=== PATIENT | male | born 1950 ===

== ENCOUNTER 2020-10-29 20:17 | Inpatient (IN) | payer OTHER, MEDICARE ==
--- OUTSIDE RECORDS SUMMARY | 2020-10-29 20:21 | XMS REPORT | Continuity of Care Document ---
:1950 Author Organization [facility] t Address [address] [place] [address] Care Team Providers Name Role Phone 2, Lab Attending Clinician Unavailable Doctor Unassigned, Name Attending Clinician Unavailable Problems This patient has no known problems. Allergies, Adverse Reactions, Alerts This patient has no known allergies or adverse reactions. Medications This patient has no known medications. Procedures This patient has no known procedures. 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 Lab [facility] [id number] 15:36:15 15:51:15 Visit Ivon [id number] [place] [id number] Yvon [id number] [address] 2019-01-14 2019-01-14 Orders Doctor ANA [id number] 00:00:00 00:00:00 Only Unassigned, LIA [id number] [place] [facility] [phone] [id number] Results This patient has no known results.
[2020-10-29 20:44] LABS: Absolute Lymphocytes (CBC) 1.5 K/uL (0.7-4.9); Hematocrit 45.4 % (39.6-49.0); Lymphocytes % 17.3 % (15.3-44.8); MPV 8.7 fL (7.6-11.3); RBC Red Blood Cell Count 5.07 M/uL (4.33-5.43)
[2020-10-29 20:53] LABS: Protime INR 1.24
[2020-10-29] MEDS ORDERED: MORPHINE 2 MG/ML SYR ONE (21:07)
[2020-10-29] MEDS ORDERED: ONDANSETRON 4 MG/2 ML VIAL ONE (21:07)
[2020-10-29] MEDS ORDERED: ASPIRIN EC 81 MG TAB PO ONE (21:07)
[2020-10-29 21:11] LABS: ALT/SGPT 48 U/L (12-78); AST/SGOT 28 U/L (15-37); Albumin 3.8 g/dL (3.4-5.0); Alkaline Phosphatase 75 U/L (45-117); BUN Blood Urea Nitrogen 16 mg/dL (7-18); Bicarbonate 25 mmol/L (21-32); Bilirubin Direct 0.1 mg/dL (0-0.2); Bilirubin Total 0.5 mg/dL (0.2-1.0); Glucose Level 110 mg/dL (74-106); Magnesium 2.5 mg/dL (1.8-2.4); NT PRO-BNP 225 pg/mL (<125); Protein, Total 6.9 g/dL (6.4-8.2); Sodium Level 142 mmol/L (136-145); Troponin (Emerg Dept Use Only) < 0.02 ng/mL (0.0-0.045)
--- NOTE | 2020-10-29 21:24 | RAD REPORT ---
EXAM DESCRIPTION: RAD - Chest Single View - 10/29/2020 9:08 pm CLINICAL HISTORY: CHEST PAIN COMPARISON: Two view chest October 2011 TECHNIQUE: AP portable chest image was obtained 10/29/2020 9:08 pm . FINDINGS: Lung volumes are low. No peripheral mass or consolidation. Cardiac silhouette is accentuat ed by pericardial fat pads. Failure and volume overload are not suspected. Heart and vasculature are normal. No measurable pleural effusion and no pneumothorax. No acute bony abnormality seen. No acute aortic findings suspected. IMPRESSION: Limited portable imaging showing no acute cardiopulmonary process.
--- NOTE | 2020-10-29 23:02 | EDPHYS ---
Physician Documentation [facility] Name: Juan M Oneal Age: 70 yrs Sex: Male : 1950 Arrival Date: 10/29/2020 Time: 20:25 Bed 5 Private MD: BENNY Physician Ahsan Cash HPI: 10/29 21:01 This 70 yrs old Unknown Male presents to ER via EMS with complaints of Chest pain. mh7 21:01 The patient or guardian reports chest pain that is located primarily in the substernal mh7 area. Onset: today, at 17:30. The pain radiates to the left arm. Associated signs and symptoms: Pertinent positives: nausea, shortness of breath, vomiting, Pertinent negatives: abdominal pain, cough, diaphoresis, dizziness, headache, lower extremity pain, lower extremity swelling, lightheadedness, near syncope, palpitations, recent travel, syncope. The chest pain is described as a pressure. Duration: The patient or guardian reports multiple episodes, that are intermittent, that wax and wane. Modifying factors: The symptoms are alleviated by nothing. the symptoms are aggravated by nothing. Severity of pain: At its worst the pain was moderate today, in the emergency department the pain has improved moderately. Historical: - Allergies: 20:33 No Known Allergies; kg - PMHx: 20:33 TIA; Atrial Fib; COPD; Inactive Histoplasmosis; kg 20:39 Hypertension; kg - Immunization history:: Adult Immunizations up to date, Client reports receiving the 2nd dose of the Covid vaccine, Client reports receiving the 1st dose of the Covid vaccine. - Social history:: Smoking status: Patient reports the use of cigarette tobacco products, Previous smoker. . ROS: 21:01 Constitutional: Negative for fever, chills, and weight loss, Eyes: Negative for injury, mh7 pain, redness, and discharge, ENT: Negative for injury, pain, and discharge, Neck: Negative for injury, pain, and swelling, Back: Negative for injury and pain, : Negative for injury, bleeding, discharge, and swelling, Skin: Negative for injury, rash, and discoloration, Neuro: Negative for headache, weakness, numbness, tingling, and seizure, Psych: Negative for depression, anxiety, suicide ideation, homicidal ideation, and hallucinations, Allergy/Immunology: Negative for hives, rash, and allergies, Endocrine: Negative for neck swelling, polydipsia, polyuria, polyphagia, and marked weight changes, Hematologic/Lymphatic: Negative for swollen nodes, abnormal bleeding, and unusual bruising. Exam: 21:01 Constitutional: This is a well developed, well nourished patient who is awake, alert, mh7 and in no acute distress. Head/Face: Normocephalic, atraumatic. Eyes: Pupils equal round and reactive to light, extra-ocular motions intact. Lids and lashes normal. Conjunctiva and sclera are non-icteric and not injected. Cornea within normal limits. Periorbital areas with no swelling, redness, or edema. Neck: Trachea midline, no thyromegaly or masses palpated, and no cervical lymphadenopathy. Supple, full range of motion without nuchal rigidity, or vertebral point tenderness. No Meningismus. Chest/axilla: Normal chest wall appearance and motion. Nontender with no deformity. No lesions are appreciated. 21:01 Respiratory: Lungs have equal breath sounds bilaterally, clear to auscultation and percussion. No rales, rhonchi or wheezes noted. No increased work of breathing, no retractions or nasal flaring. Abdomen/GI: Soft, non-tender, with normal bowel sounds. No distension or tympany. No guarding or rebound. No evidence of tenderness throughout. Back: No spinal tenderness. No costovertebral tenderness. Full range of motion. Skin: Warm, dry with normal turgor. Normal color with no rashes, no lesions, and no evidence of cellulitis. MS/ Extremity: Pulses equal, no cyanosis. Neurovascular intact. Full, normal range of motion. Neuro: Awake and alert, GCS 15, oriented to person, place, time, and situation. Cranial nerves II-XII grossly intact. Motor strength 5/5 in all extremities. Sensory grossly intact. Cerebellar exam normal. Normal gait. Psych: Awake, alert, with orientation to person, place and time. Behavior, mood, and affect are within normal limits. 21:01 Cardiovascular: Rate: normal, Rhythm: irregularly irregular, Pulses: no pulse deficits are appreciated, Heart sounds: normal, normal S1and S2, Edema: is not appreciated, JVD: is not appreciated. Vital Signs: 20:25 BP 134 / 82; Pulse 87; Resp 19; Temp 98.7(TE); Pulse Ox 96% on 2 lpm NC; Weight 112.94 jb4 kg (R); Height 5 ft. 10 in. (177.80 cm) (R); Pain 4/10; 21:30 BP 123 / 79; Pulse 92; Resp 20; Pulse Ox 97% ; kg 10/30 00:23 BP 131 / 75; Pulse 90; Resp 16; Pulse Ox 99% ; rr5 00:30 BP 136 / 79; Pulse 95; Resp 19; Pulse Ox 99% ; Pain 5/10; rr5 10/29 20:25 Body Mass Index 35.73 (112.94 kg, 177.80 cm) jb4 MDM: 10/29 22:58 Differential diagnosis: abnormal EKG, acute myocardial infarction, acute pericarditis, mh7 anxiety, coronary artery disease chest wall pain, congestive heart failure costochondritis, myocarditis, pericarditis, pneumonia, pneumothorax. HEART Score: History: Highly Suspicious (2), ECG: Non specific repolarization disturbance / LBTB / PM (1), Age: > or = 65 years (2), Risk Factors: 1 or 2 risk factors (1), [Hypercholesterolemia] [Obesity] Troponin: < or = 1 x Normal Limit (0), Total Score = 6. The patient was given aspirin in the Emergency Department. Data reviewed: vital signs, nurses notes, lab test result(s), cardiac enzymes, CBC, electrolytes, EKG, radiologic studies, plain films. Data interpreted: Pulse oximetry: on room air is 97 %. Interpretation: normal. Counseling: I had a detailed discussion with the patient and/or guardian regarding: the historical points, exam findings, and any diagnostic results supporting the discharge/admit diagnosis, lab results, radiology results, the need for further work-up and treatment in the hospital. Response to treatment: the patient's symptoms have markedly improved after treatment. 23:00 Patient medically screened. [facility] 10/29 20:26 Order name: Basic Metabolic Panel; Complete Time: 21:12 [facility] 10/29 20:26 Order name: CBC with Diff; Complete Time: 21:12 [facility] 10/29 20:26 Order name: LFT's; Complete Time: 21:12 [facility] 10/29 20:26 Order name: Magnesium; Complete Time: 21:12 [facility] 10/29 20:26 Order name: NT PRO-BNP; Complete Time: 21:12 10/29 20:26 Order name: PT-INR; Complete Time: 21:12 10/29 20:26 Order name: Troponin (emerg Dept Use Only); Complete Time: 21:12 10/29 20:26 Order name: XRAY Chest (1 view); Complete Time: 22:06 10/29 20:26 Order name: EKG; Complete Time: 20:27 10/29 22:36 Order name: COVID-19 : Document "Date of Symptom Onset" if Symptomatic. kg 10/30 00:04 Order name: SARS-COV-2 RT PCR EDMS 10/29 20:26 Order name: Cardiac monitoring; Complete Time: 20:37 10/29 20:26 Order name: EKG - Nurse/Tech; Complete Time: 20:37 10/29 20:26 Order name: IV Saline Lock; Complete Time: 22:10 10/29 20:26 Order name: Labs collected and sent; Complete Time: 22:10 10/29 20:26 Order name: O2 Per Protocol; Complete Time: 20:37 10/29 20:26 Order name: O2 Sat Monitoring; Complete Time: 20:37 10/29 22:51 Order name: CONS Physician Consult EDHI Administered Medications: 20:53 Drug: Zofran (Ondansetron) 4 mg Route: IVP; Site: left wrist; kg 22:14 Follow up: Response: No adverse reaction; Marked relief of symptoms kg 20:53 Drug: Aspirin Chewable Tablet 324 mg Route: PO; kg 22:13 Follow up: Response: No adverse reaction kg 20:54 Drug: morphine 2 mg Route: IVP; Site: right forearm; kg 22:14 Follow up: Response: No adverse reaction; Marked relief of symptoms; Pain is decreased kg Disposition: 10/29/20 23:00 Hospitalization ordered by Patito Macdonald for Observation. Preliminary diagnosis is Chest pain, unspecified. - Bed requested for Telemetry/MedSurg (observation). - Status is Observation. rr5 - Condition is Stable. - Problem is new. - Symptoms have improved. Signatures: Dispatcher [employer] EDHI Michelle Hall RN RN Berto Hendrickson RN RN rr5 Ahsan Cash MD MD 7 Sherice Carrasco Corrections: (The following items were deleted from the chart) 10/30 00:14 10/29 23:00 Hospitalization Ordered by Patito Macdonald MD for Observation. Preliminary diagnosis is Chest pain, unspecified. Bed requested for Telemetry/MedSurg (observation). Status is Observation. Condition is Stable. Problem is new. Symptoms have improved. 7 10/30 00:51 00:14 10/29/2020 23:00 Hospitalization Ordered by Patito Macdonald MD for Observation. rr5 Preliminary diagnosis is Chest pain, unspecified. Bed requested for Telemetry/MedSurg (observation). Status is Observation. Condition is Stable. Problem is new. Symptoms have improved. mw
--- NOTE | 2020-10-29 23:02 | ER ---
Nurse's Notes [facility] Name: Juan M Oneal Age: 70 yrs Sex: Male : 1950 Arrival Date: 10/29/2020 Time: 20:25 Bed 5 Private MD: Diagnosis: Chest pain, unspecified Presentation: 10/29 20:27 Chief complaint: Patient states: Chest pain starting about 17:30 after I ate dinner. kg Coronavirus screen: Client denies travel out of the [place] in the last 14 days. Ebola Screen: Patient negative for fever greater than or equal to 101.5 degrees Fahrenheit, and additional compatible Ebola Virus Disease symptoms Patient denies exposure to infectious person. Patient denies travel to an Ebola-affected area in the 21 days before illness onset. Initial Sepsis Screen: Does the patient meet any 2 criteria? No. Patient's initial sepsis screen is negative. Does the patient have a suspected source of infection? No. Patient's initial sepsis screen is negative. Risk Assessment: Do you want to hurt yourself or someone else? Patient reports no desire to harm self or others. Onset of symptoms was October 29, 2020 at 17:30. 20:27 Method Of Arrival: [facility] kg 20:27 Acuity: [place] 3 kg Historical: - Allergies: 20:33 No Known Allergies; kg - PMHx: 20:33 TIA; Atrial Fib; COPD; Inactive Histoplasmosis; kg 20:39 Hypertension; kg - Immunization history:: Adult Immunizations up to date, Client reports receiving the 2nd dose of the Covid vaccine, Client reports receiving the 1st dose of the Covid vaccine. - Social history:: Smoking status: Patient reports the use of cigarette tobacco products, Previous smoker. . Screenin:33 Abuse screen: Denies threats or abuse. Nutritional screening: No deficits noted. jb4 Tuberculosis screening: No symptoms or risk factors identified. Fall Risk IV access (20 points). Total Goodwin Fall Scale indicates No Risk (0-24 pts). Assessment: 20:33 General: Appears in no apparent distress. uncomfortable, Behavior is cooperative, jb4 anxious. Pain: Complains of pain in chest Pain radiates to left arm Pain currently is 4 out of 10 on a pain scale. Quality of pain is described as pressure. Neuro: Level of Consciousness is awake, alert, obeys commands, Oriented to person, place, time, situation. Cardiovascular: Patient's skin is warm and dry. Respiratory: Reports shortness of breath at rest Airway is patent Respiratory effort is even, labored, Respiratory pattern is symmetrical, tachypnea Breath sounds are clear bilaterally. Breath sounds are diminished in right middle lobe, left lower lobe, right lower lobe and right posterior lower lobe. GI: No signs and/or symptoms were reported involving the gastrointestinal system. : No signs and/or symptoms were reported regarding the genitourinary system. EENT: No signs and/or symptoms were reported regarding the EENT system. Derm: Skin is intact, Skin is pink, warm \T\ dry. Musculoskeletal: Circulation, motion, and sensation intact. Range of motion: intact in all extremities. 10/30 00:05 Reassessment: Patient appears in no apparent distress at this time. Patient is alert, rr5 oriented x 3, equal unlabored respirations, skin warm/dry/pink. received awake alert not in distress GCS 15/15 admitted for chest pain unspecified will be transfer to room 217.. 00:35 Reassessment: Patient appears in no apparent distress at this time. Patient is alert, rr5 oriented x 3, equal unlabored respirations, skin warm/dry/pink. complaints of chest pain pain score 5/10. PRN medication given signed in [facility]. Vital Signs: 10/29 20:25 BP 134 / 82; Pulse 87; Resp 19; Temp 98.7(TE); Pulse Ox 96% on 2 lpm NC; Weight 112.94 jb4 kg (R); Height 5 ft. 10 in. (177.80 cm) (R); Pain 4/10; 21:30 BP 123 / 79; Pulse 92; Resp 20; Pulse Ox 97% ; kg 10/30 00:23 BP 131 / 75; Pulse 90; Resp 16; Pulse Ox 99% ; rr5 00:30 BP 136 / 79; Pulse 95; Resp 19; Pulse Ox 99% ; Pain 5/10; rr5 10/29 20:25 Body Mass Index 35.73 (112.94 kg, 177.80 cm) jb4 ED Course: 10/29 20:25 Patient arrived in ED. bp1 20:25 Philippe Jones, MARA is Primary Nurse. jb4 20:26 Ahsan Cash MD is Attending Physician. [facility] 20:26 Primary Nurse role handed off by Philippe Jones, MARA kg 20:26 Sherice Carrasco is Primary Nurse. kg 20:28 Triage completed. kg 20:33 Patient has correct armband on for positive identification. Placed in gown. Bed in low jb4 position. Call light in reach. Side rails up X 1. director process on. Pulse ox on. NIBP on. 20:33 Maintain EMS IV. Dressing intact. Good blood return noted. Site clean \T\ dry. Gauge \T\ jc 4 site: 20g Right Hand. 21:02 XRAY Chest (1 view) In Process Unspecified. EDMS 23:00 Patito Macdonald MD is Hospitalizing Provider. [facility] 10/30 00:10 Arm band placed on left wrist. rr5 00:50 No provider procedures requiring assistance completed. Patient admitted, IV remains in rr5 place. intact, No redness/swelling at site. Administered Medications: 10/29 20:53 Drug: Zofran (Ondansetron) 4 mg Route: IVP; Site: left wrist; kg 22:14 Follow up: Response: No adverse reaction; Marked relief of symptoms kg 20:53 Drug: Aspirin Chewable Tablet 324 mg Route: PO; kg 22:13 Follow up: Response: No adverse reaction kg 20:54 Drug: morphine 2 mg Route: IVP; Site: right forearm; kg 22:14 Follow up: Response: No adverse reaction; Marked relief of symptoms; Pain is decreased kg Outcome: 23:00 Decision to Hospitalize by Provider. [facility] 10/30 00:50 Admitted to Med/surg accompanied by tech, via stretcher, room 217, with chart, Report rr5 called to jeff Condition: stable Instructed on the need for admit. 00:51 Patient left the ED. rr5 Signatures: Dispatcher [employer] EDMS Philippe Jones, RN MARA jb4 Berto Hendrickson RN RN rr5 Nikki Coughlin Maurice, MD MD 7 Sherice Carrasco kg Corrections: (The following items were deleted from the chart) 10/29 20:37 20:25 BP 134 / 82; Pulse 87bpm; Resp 19bpm; Pulse Ox 96% RA; Temp 98.7F Temporal; jb4 112.94 kg Reported; Height 5 ft. 10 in. Reported; BMI: 35.7; Pain 09/18; jb4
--- NOTE | 2020-10-29 23:17 | P.HP ---
Certification for Inpatient Patient admitted to: Observation With expected LOS: <2 Midnights Patient will require the following post-hospital care: None Practitioner: I am a practitioner with admitting privileges, knowledge of patient current condition, hospital course, and medical plan of care. Services: Services provided to patient in accordance with Admission requirements found in Title 42 Section 412.3 of the Code of Federal Regulations <Manny Hoang - Last Filed: 10/29/20 23:18> Patient History Date of Service: 10/29/20 Reason for admission: chest pain History of Present Illness: Mr. Oneal is a 70 yo M with afib, COPD, HTN, BRAD on CPAP here today for 9/10 sternal chest pain radiating to the left arm beginning at 5pm. He describes the pain as sharp or tightness. He says the pain is constant and began when he went to go lay down. He has never had pain like this before. Reports vomiting and lightheadness. Denies blurry vision or headache. Symptoms improved with morphine. Last Sunday he had a pharmacological stress test wnl, ECHO wnl. He is scheduled to have an ablation for afib in November. 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 He has had a stent placed several years ago. Initial trops negative. In rate controlled afib. - Past Medical/Surgical History Diabetic: No -: afib -: COPD -: HTN -: BRAD w/ CPAP -: hernia repair -: stent placement Psychosocial/ Personal History: - Family History Brother -: Hypertension, Cancer - Social History Smoking Status: Former smoker Alcohol use: No CD- Drugs: No Caffeine use: Yes Place of Residence: Home <Manny Hoang - Last Filed: 10/29/20 23:18> Date of Service: 10/29/20 <Patito Macdonald - Last Filed: 11/01/20 02:26> Review of Systems General: Malaise, As per HPI Eyes: Unremarkable ENT: Unremarkable Respiratory: Unremarkable Cardiovascular: Chest Pain, Light Headedness, As per HPI Gastrointestinal: Nausea, Vomiting, As per HPI Genitourinary: Unremarkable Musculoskeletal: Arm Pain, As per HPI Integumentary: Unremarkable Neurological: Unremarkable Lymphatics: Unremarkable <Manny Hoang - Last Filed: 10/29/20 23:18> Physical Examination - Physical Exam General: Alert, In no apparent distress, Oriented x3, Cooperative HEENT: Atraumatic, Normocephalic, PERRLA, Mucous membr. moist/pink, EOMI, Sclerae nonicteric Neck: Supple, 2+ carotid pulse no bruit, JVD not distended, No Thyromegaly, No LAD Respiratory: Normal air movement Cardiovascular: No edema, Normal pulses, No gallops, No rubs, Irregular heart rate/rhythm Capillary refill: <2 Seconds Gastrointestinal: Normal bowel sounds, Soft and benign, Non-distended, No ascites, No tenderness, No masses, No rebound, No guarding Musculoskeletal: No clubbing, No swelling, No contractures, No erythema, No tenderness, No warmth Integumentary: No rashes, No breakdown, No significant lesion, No tenderness/swelling, No erythema, No warmth, No cyanosis Neurological: Normal speech, Normal strength at 5/5 x4 extr, Normal tone, Sensation intact, Cranial nerves 3-12 intact, Normal affect Lymphatics: No axilla or inguinal lymphadenopathy - Studies Laboratory Data (last 24 hrs) 10/29/20 20:36: PT 14.3 H, INR 1.24 10/29/20 20:36: WBC 8.80, Hgb 15.4, Hct 45.4, Plt Count 199 10/29/20 20:36: Sodium 142, Potassium 4.0, BUN 16, Creatinine 1.16, Glucose 110 H, Magnesium 2.5 H, Total Bilirubin 0.5, AST 28, ALT 48, Alkaline Phosphatase 75 <Manny Hoang - Last Filed: 10/29/20 23:18> Assessment and Plan - Problems (Diagnosis) (1) Afib Status: Chronic Qualifiers: Atrial fibrillation type: unspecified Qualified Code(s): I48.91 - Unspecified atrial fibrillation (2) COPD (chronic obstructive pulmonary disease) Status: Chronic Qualifiers: COPD type: unspecified COPD Qualified Code(s): J44.9 - Chronic obstructive pulmonary disease, unspecified (3) HTN (hypertension) Status: Chronic Qualifiers: Hypertension type: essential hypertension Qualified Code(s): I10 - Essential (primary) hypertension (4) BRAD on CPAP Status: Chronic (5) Chest pain Status: Acute Qualifiers: Chest pain type: unspecified Qualified Code(s): R07.9 - Chest pain, unspecified - Plan cardiology consulted, trend troponins and EKG morphine and NTG PRN, O2 as needed lipid panel and TSH/T4 pending continue Eliquis, digoxin and diltiazem BP currently stable CPAP for bedtime, reconcile and continue home medications for COPD Discharge Plan: Home Plan to discharge in: 24 Hours - Advance Directives Does patient have a Living Will: No Does patient have a Durable POA for Healthcare: No - Code Status/Comfort Care Code Status Assessed: Yes (full code ) Critical Care: No Time Spent Managing Pts Care (In Minutes): 70 <Manny Hoang - Last Filed: 10/29/20 23:18> Date of Service: 10/29/20 Chart reviewed. Events of the last 24 hr noted. Agree with plan of care as mentioned above <Patito Macdonald - Last Filed: 11/01/20 02:26>
[2020-10-30] MEDS ORDERED: ONDANSETRON 4 MG/2 ML VIAL IV PRN (00:39)
[2020-10-30] MEDS ORDERED: ACETAMINOPHEN 500 MG TAB PO PRN (00:39)
[2020-10-30] MEDS ORDERED: MORPHINE 2 MG/ML SYR IV PRN (00:39)
[2020-10-30] MEDS ORDERED: NITROGLYCERIN 0.4 MG/TAB SL PRN (00:39)
[2020-10-30] MEDS ORDERED: MORPHINE 2 MG/ML SYR ONE (01:00)
[2020-10-30] MEDS: APIXABAN 5 MG TABLET PO SCH ×3 (01:41→22:01)
[2020-10-30 01:48] VITALS: BMI 34.1
[2020-10-30 06:28] LABS: Absolute Lymphocytes (CBC) 2.1 K/uL (0.7-4.9); Basophils % 0.5 % (0-1.3); Hematocrit 46.6 % (39.6-49.0); Lymphocytes % 23.7 % (15.3-44.8); MPV 9.3 fL (7.6-11.3); RBC Red Blood Cell Count 5.14 M/uL (4.33-5.43)
[2020-10-30 06:50] LABS: ALT/SGPT 48 U/L (12-78); AST/SGOT 29 U/L (15-37); Albumin 3.7 g/dL (3.4-5.0); Alkaline Phosphatase 67 U/L (45-117); BUN Blood Urea Nitrogen 12 mg/dL (7-18); Bicarbonate 25 mmol/L (21-32); Bilirubin Total 0.8 mg/dL (0.2-1.0); Glucose Level 85 mg/dL (74-106); HDL Cholesterol 44 mg/dL (40-60); LDL Cholesterol, Calculated 137 (<130); Magnesium 2.5 mg/dL (1.8-2.4); Phosphorus 4.4 mg/dL (2.5-4.9); Potassium 4.3 mmol/L (3.5-5.1); Protein, Total 6.9 g/dL (6.4-8.2); Sodium Level 142 mmol/L (136-145); Troponin I < 0.02 ng/mL (0.0-0.045)
[2020-10-30] MEDS ORDERED: predniSONE 5 MG TAB PO SCH (09:00)
[2020-10-30] MEDS ORDERED: DIGOXIN 0.125 MG TABLET PO SCH (09:00)
[2020-10-30] MEDS ORDERED: MONTELUKAST 10 MG TAB PO SCH (09:00)
[2020-10-30 12:49] VITALS: O2SAT 96
[2020-10-30] MEDS ORDERED: ATORVASTATIN 40 MG TAB PO SCH (21:00)
[2020-10-30 22:13] VITALS: BP 129/78; TEMP 97.7
--- NOTE | 2020-10-30 22:14 | CON ---
Date of Consultation: 10/30/2020 Reason For Consultation: Chest pain. History Of Present Illness: A 70-year-old male with history of coronary artery disease, status post cardiac stents in the past; history of chronic atrial fibrillation. He is scheduled to have atrial f ibrillation ablation. Apparently, he had a recent stress test that was negative. Comes in with ches t pain, pressure-like, close to the neck and arm along with nausea and vomiting, lasted about 30 to 4 5 minutes and resolved, and he has been having repetitive episodes with minimal activities lately. 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 Past Medical History: Atrial fibrillation, COPD, hypertension, obstructive sleep apnea, and coronary artery disease. Past Surgical History: Cardiac stent placement. Medications: Refer to reconciliation sheet for detailed list. Family History: No premature coronary artery disease or cancer. Social History: Does not smoke or drink. Does not use any drugs. Review of Systems: All systems reviewed and they were negative except for what is mentioned in the HPI. Physical Examination: Vital Signs: Reviewed. Head and Neck: Pupils are equal, reactive to light. Intact eye movements. No JVD. No cervical lym phadenopathy. Neck: Supple. Thyroid is not enlarged. Lungs: Clear to auscultation bilaterally. No rhonchi, rales, or crackles. No accessory muscle use. Heart: Irregularly irregular. No extra sounds. Abdomen: Soft, nontender. Bowel sounds positive. No organomegaly. No masses or hernia. No rigidi ty or rebound. Extremities: No clubbing or cyanosis. Intact pulses. Skin: No rash noted. Neurologic: Alert, awake, oriented x3. No acute focal deficits appreciated. Investigations: Troponins x3 are negative. Creatinine is normal. Hemoglobin is 15.4. Assessment And Recommendations: Chest pain, very typical pain, likely unstable angina. I recommend coronary angiogram during this hospital stay and continue aspirin and trend enzymes. Obtain echocard iogram. However, after long discussion with the patient and the , the patient declines any furth er cardiac workup and wants to be released to follow up with his video producer. Explained the risks t o him. He understands and he will return to the emergency room with any further chest pains. Thank you for this consult. /AQUILES Voice ID: [id number] Report ID: [id number]
--- NOTE | 2020-11-01 02:28 | P.PN ---
Subjective Date of Service: 10/30/20 Spoke with Cardiology and they wanted patient to proceed with cardiac catheterization. 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 Review of Systems 10-point ROS is otherwise unremarkable Physical Examination - Vital Signs Temperature: 97.7 F Blood Pressure: 129/78 Pulse: 111 Respirations: 20 Pulse Ox (%): 95 - Physical Exam General: Alert, In no apparent distress, Oriented x3 Respiratory: Clear to auscultation bilaterally, Normal air movement Cardiovascular: Regular rate/rhythm, Normal S1 S2, No murmurs Gastrointestinal: Normal bowel sounds, Soft and benign, Non-distended, No tenderness Musculoskeletal: No tenderness Integumentary: No rashes Neurological: Normal speech, Normal tone, Sensation intact, Cranial nerves 3-12 intact, Normal affect Lymphatics: No axilla or inguinal lymphadenopathy - Studies Medications List Reviewed: Yes Assessment & Plan - Problems (Diagnosis) (1) Chest pain, rule out acute myocardial infarction Status: Acute (2) Afib Status: Chronic Qualifiers: Atrial fibrillation type: unspecified Qualified Code(s): I48.91 - Unspecified atrial fibrillation (3) COPD (chronic obstructive pulmonary disease) Status: Chronic Qualifiers: COPD type: unspecified COPD Qualified Code(s): J44.9 - Chronic obstructive pulmonary disease, unspecified (4) HTN (hypertension) Status: Chronic Qualifiers: Hypertension type: essential hypertension Qualified Code(s): I10 - Essential (primary) hypertension (5) BRAD on CPAP Status: Chronic - Plan 1. Serial troponins and EKG 2. Appreciate Cardiology consultation 3. Echocardiogram and stress test if cardiology is agreeable 4. Anti-platelet therapy, anti coagulation, beta-cori, statin, and O2 as needed 5. IV morphine for pain 6. Nitro p.r.n. Discharge Plan: Home - Advance Directives Does patient have a Living Will: No Does patient have a Durable POA for Healthcare: No - Code Status/Comfort Care Code Status Assessed: Yes Code Status: Full Code Critical Care: No Time Spent Managing PTS Care (In Minutes): 35
--- NOTE | 2020-11-01 02:31 | P.DS ---
Discharge Date: 10/31/20 Disposition: TRANSFER TO [facility] Discharge Condition: GOOD Reason for Admission: chest pain - Problems (1) Chest pain, rule out acute myocardial infarction Status: Acute (2) Afib Status: Chronic Qualifiers: Atrial fibrillation type: unspecified Qualified Code(s): I48.91 - Unspecified atrial fibrillation (3) COPD (chronic obstructive pulmonary disease) Status: Chronic Qualifiers: COPD type: unspecified COPD Qualified Code(s): J44.9 - Chronic obstructive pulmonary disease, unspecified (4) HTN (hypertension) Status: Chronic Qualifiers: Hypertension type: essential hypertension Qualified Code(s): I10 - Essential (primary) hypertension (5) BRAD on CPAP Status: Chronic Brief History of Present Illness: Mr. Oneal is a 70 yo M with afib, COPD, HTN, BRAD on CPAP here today for 9/10 sternal chest pain radiating to the left arm beginning at 5pm. He describes the pain as sharp or tightness. He says the pain is constant and began when he went to go lay down. He has never had pain like this before. Reports vomiting and lightheadness. Denies blurry vision or headache. Symptoms improved with morphine. Last Sunday he had a pharmacological stress test wnl, ECHO wnl. He is scheduled to have an ablation for afib in November. Dr. Kilgore is his pm technician. He has had a stent placed several years ago. Initial trops negative. In rate controlled afib. Hospital Course: Patient pm technician requested transfer to [facility]. We went ahead and assisted with arrangements. Patient was transferred for tertiary care and cardiac catheterization at [facility]. Vital Signs/Physical Exam: Temp Pulse Resp BP Pulse Ox 97.7 F 111 H 20 129/78 95 11/01/20 02:27 11/01/20 02:27 11/01/20 02:27 11/01/20 02:27 11/01/20 02:27 General: Alert, In no apparent distress, Oriented x3 Laboratory Data at Discharge: WBC 8.70 K/uL (4.3-10.9) 10/30/20 05:01 Hgb 15.4 g/dL (13.6-17.9) 10/30/20 05:01 Hct 46.6 % (39.6-49.0) 10/30/20 05:01 Plt Count 200 K/uL (152-406) 10/30/20 05:01 PT 14.3 SECONDS (9.5-12.5) H 10/29/20 20:36 INR 1.24 10/29/20 20:36 Sodium 142 mmol/L (136-145) 10/30/20 05:01 Potassium 4.3 mmol/L (3.5-5.1) 10/30/20 05:01 BUN 12 mg/dL (7-18) 10/30/20 05:01 Creatinine 0.83 mg/dL (0.55-1.3) 10/30/20 05:01 Glucose 85 mg/dL (74-106) 10/30/20 05:01 Phosphorus 4.4 mg/dL (2.5-4.9) 10/30/20 05:01 Magnesium 2.5 mg/dL (1.8-2.4) H 10/30/20 05:01 Total Bilirubin 0.8 mg/dL (0.2-1.0) 10/30/20 05:01 AST 29 U/L (15-37) 10/30/20 05:01 ALT 48 U/L (12-78) 10/30/20 05:01 Alkaline Phosphatase 67 U/L (45-117) 10/30/20 05:01 Troponin I < 0.02 ng/mL (0.0-0.045) 10/30/20 05:01 Triglycerides 121 mg/dL (<150) 10/30/20 05:01 Cholesterol 205 mg/dL (<200) H 10/30/20 05:01 HDL Cholesterol 44 mg/dL (40-60) 10/30/20 05:01 Cholesterol/HDL Ratio 4.66 10/30/20 05:01 Home Medications: Apixaban [Eliquis] 5 mg PO BID 10/30/20 Budesonide/Formoterol Fumarate [Symbicort 160-4.5 Mcg Inhaler] 2 puff IH DAILY 10/30/20 Calcium Carbonate [Calcium] 600 mg PO DAILY 10/30/20 Digoxin [Lanoxin*] 0.125 mg PO DAILY 10/30/20 Diltiazem HCl [Diltiazem 12Hr ER] 120 mg PO BID 10/30/20 Montelukast Sodium 10 mg PO DAILY 10/30/20 Multivit-Min/FA/Lycopen/Lutein [Men 50 Plus Multivitamin Tab] 1 tab PO DAILY 10/30/20 predniSONE [Prednisone*] 5 mg PO DAILY 10/30/20 Physician Discharge Instructions: Transfer to [facility] Diet: AHA Activity: Fall precautions Followup: Unknown,U [Primary Care Provider] - Time spent managing pt's care (in minutes): 35
== END 2020-10-31 00:25 | disposition short-term general hospital (02) | DRG 281 ==
LOC: ER 20:17 → ERHOLD 22:55 → 2ND 10-30 00:46
PROVIDERS: ADMIT Hospitalist; ATTEND Hospitalist
DX: I21.9 Acute myocardial infarction, unspecified (principal); I48.20 Chronic atrial fibrillation, unspecified; J44.9 Chronic obstructive pulmonary disease, unspecified; F17.210 Nicotine dependence, cigarettes, uncomplicated; G47.33 Obstructive sleep apnea (adult) (pediatric); I25.10 Atherosclerotic heart disease of native coronary artery without angina pectoris; I10 Essential (primary) hypertension; Z99.89 Dependence on other enabling machines and devices; Z95.5 Presence of coronary angioplasty implant and graft; Z86.73 Personal history of transient ischemic attack (TIA), and cerebral infarction without residual deficits; Z79.01 Long term (current) use of anticoagulants; Z79.52 Long term (current) use of systemic steroids; Z79.899 Other long term (current) drug therapy; Z20.822 Contact with and (suspected) exposure to COVID-19
CPT/HCPCS: 36415; 71045; 80048; 80053; 80061; 80076; 83735; 83880; 84100; 84439; 84443; 84484; 85025; 85610; 93005; 94760; 99285; J2270; J2405; J7512; U0003